=== PATIENT | male | born 1945 | race Two or more races ===

== ENCOUNTER 2018-08-02 16:34 | Emergency (ER) | payer MEDICARE ==
[~2018-08-02] VITALS: Ht 172.7 cm; Wt 90.7 kg
[2018-08-02 16:52] VITALS: BP 110/77
--- NOTE | 2018-08-02 16:52 | NUR ---
ED Nurse Note:pt. came from home, s/p fall and right knee injury yesterday, skin is intact, right knee is swallen
[2018-08-02] MEDS ORDERED: NORCO 5-325 TA1 EACH ORAL (18:10)
[2018-08-02 18:34] VITALS: BP 114/75
[2018-08-02 18:36] VITALS: BP 114/75
--- NOTE | 2018-08-02 18:38 | NUR ---
ER DISCHARGE NOTE:pt. had knee immobilizer placed on right leg with cratches Patient is cleared to be discharged per ERMD, pt is aox4, on room air, with stable vital signs. pt was given dc and prescription instructions, pt was able to verbalize understanding, pt is able to ambulate with steady gait. pt took all belongings.
--- NOTE | 2018-08-02 18:47 | Emergency Room Report ---
History of Present Illness General Chief Complaint: Multiple Trauma/Fall Source: Patient Present Illness HPI 73-year-old male presents ED for evaluation. Patient complaining of right knee pain and swelling. States he tripped and hit his knee against stairs yesterday morning. Notes pain and swelling to the right knee. Throbbing, 8 out of 10, nonradiating. Denies any other injuries. No other aggravating relieving factors. Denies any other associated symptoms Allergies: Coded Allergies: No Known Allergies (Unverified , 08/02/18) Patient History Past Medical History: DM, HTN Past Surgical History: none Pertinent Family History: none Social History: Denies: smoking, alcohol use, drug use Immunizations: UTD Reviewed Nursing Documentation: PMH: Agreed; PSxH: Agreed Nursing Documentation-PMH Past Medical History: No History, Except For Hx Hypertension: Yes Hx Diabetes: Yes Review of Systems All Other Systems: negative except mentioned in HPI Physical Exam Vital Signs Date Time Temp Pulse Resp B/P (MAP) Pulse Ox O2 Delivery O2 Flow Rate FiO2 08/02/18 16:45 97.9 105 20 110/77 94 Room Air Sp02 EP Interpretation: reviewed, normal General Appearance: no apparent distress, alert, GCS 15, non-toxic Head: normocephalic Eyes: bilateral eye normal inspection, bilateral eye PERRL ENT: normal ENT inspection Neck: normal inspection Respiratory: normal inspection Cardiovascular #1: normal inspection Gastrointestinal: normal inspection Rectal: deferred Genitourinary: no CVA tenderness Musculoskeletal: decreased range of motion, swelling - R knee Neurologic: alert, oriented x3, responsive, motor strength/tone normal, sensory intact, speech normal Psychiatric: judgement/insight normal, memory normal, mood/affect normal, no suicidal/homicidal ideation Skin: normal inspection Lymphatic: normal inspection Procedures Splinting Splinting : Consent: Emergent Pre-Made Type: knee immobilizer Pre-Proc Neuro Vasc Exam: normal Post-Proc Neuro Vasc Exam: normal Patient Tolerated: Well Complications: None Medical Decision Making Diagnostic Impression: Primary Impression: Knee contusion Qualified Codes: S80.01XA - Contusion of right knee, initial encounter ER Course Hospital Course 73-year-old M presents to ED complaining of R knee pain s/p trip and fall Differential diagnoses include: Fracture, dislocation, sprain, contusion Clinical course Patient placed on stretcher. After initial history and physical, I ordered xrays R knee Xrays prelim read shows no acute fracture/dislocation. Discussed findings with patient. Placed in knee immobilizer. Given crutches. Safe for discharge close outpatient follow-up. We'll provide ortho referrals Diagnosis - knee contusion Stable and discharged to home with prescription for norco. apply ice, keep elevated. weight bear as tolerated. Followup with ortho. Return to ED if symptoms recur or worsen Other X-Ray Diagnostic Results Other X-Ray Diagnostic Results : X-Ray ordered: R knee # of Views/Limited Vs Complete: 3 View Indication: Swelling EP Interpretation: Yes Interpretation: no dislocation, no fractures Impression: No acute disease Electronically Signed by: Electronically signed by Colton Cheng MD Last Vital Signs Date Time Temp Pulse Resp B/P (MAP) Pulse Ox O2 Delivery O2 Flow Rate FiO2 08/02/18 18:36 97.9 102 18 114/75 94 Room Air Status: improved Disposition: HOME, SELF-CARE Condition: Stable Scripts Hydrocodone Bit/Acetaminophen 5-325* (NORCO 5-325*) 1 Each Tablet 1 TAB ORAL Q6H PRN for For Pain, #10 TAB 0 Refills Prov: Colton Cheng MD 08/02/18 Referrals: [facility] Open 24 hour /7 days a week by Appointment Only [id number] [facility] [id number] Patient Instructions: Knee Pain, [id number] Colton Cheng MD August 02, 2018 18:47
--- NOTE | 2018-08-03 11:01 | Diagnostic Imaging Report ---
Indication: Pain Knee pain/trauma 3 views of the right knee were obtained. Findings: No acute fracture, malalignment, or joint effusion are identified. Narrowing of the joint space and marginal spur formation noted. There is also suggestion of a small joint effusion. IMPRESSION: No acute injury. Joint effusion suspected. Mild arthrosis
== END 2018-08-02 18:35 | disposition home or self-care (01) ==
LOC: EMR 17:03
DX: S80.01XA Contusion of right knee, initial encounter (principal); W10.9XXA Fall (on) (from) unspecified stairs and steps, initial encounter; Y92.9 Unspecified place or not applicable; I10 Essential (primary) hypertension; E11.9 Type 2 diabetes mellitus without complications
CPT/HCPCS: 29515; 99283